=== PATIENT | female | born 1990 | race Caucasian/White ===

== ENCOUNTER 2016-12-14 17:32 | Emergency (ER) | payer SELFPAY ==
[2016-12-14 18:40] LABS: CONTROL LINE UCG INT CTR LINE PRESENT
--- NOTE | 2016-12-14 19:20 | EDDOCDS ---
Physician Documentation [facility] Name: Sara Flanagan Age: 26 yrs Sex: Female : 1990 Arrival Date: 12/14/2016 Time: 17:32 Bed PR Private MD: Juliocesar Naranjo M.D. Disposition: 12/14/16 18:56 Discharged to Home/Self Care. Impression: Urinary tract infection, site not specified. - Condition is Stable. - Discharge Instructions: Urinary Tract Infection, Urinary Tract Infection, Qign-kg-Ybxa. - Prescriptions for Macrobid 100 mg Oral Capsule - take 100 milligram by ORAL route every 12 hours for 10 days; 20 capsule. - Medication Reconciliation, Local Pharmacy Hours form. - Follow up: Juliocesar Naranjo; When: Call to arrange an appointment. - Problem is new. - Symptoms are unchanged. Historical: - Allergies: no known allergies; - Home Meds: 1. none - PMHx: Heart Murmur; - PSHx: 3 open heart surgeries as ; eye surgery; - Social history: Smoking status: Patient states was never smoker of tobacco. No barriers to communication noted, The patient speaks fluent Mongolian. - Family history: Not pertinent. - : The pt / caregiver states he / she is not on anticoagulants. Home medication list is obtained from the patient. - Exposure Risk Screening:: None identified. 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 6 in. (137.16 cm) (R); 17:34 Body Mass Index 16.64 (31.30 kg, 137.16 cm) dd6 MDM: 17:57 UA Ordered. EDMS 17:57 UCG- In Lab Ordered. EDMS 17:57 Urine Culture Ordered. EDMS 18:49 UCG- In Lab Reviewed. sd1 18:49 UA Reviewed. sd1 18:49 UCG- In Lab Reviewed. sd1 18:55 GC & Chlamydia Amplification Ordered. EDMS 19:05 Financial registration complete. gb 19:18 [facility] Payment Agreement was scanned into [employer] and attached to record. gb Signatures: Dispatcher MedHost Jayna Diaz MD MD sd1 Flores Russ RN RN Anne Ty RN RN Sujata Cortez, John Reg gb The chart was reviewed and I authenticate all verbal orders and agree with the evaluation and treatment provided.Attachments: 19:18 [facility] Payment Agreement gb MTDD
--- NOTE | 2016-12-14 19:20 | EDDOCDS ---
Nurse's Notes [facility] Name: Sara Flanagan Age: 26 yrs Sex: Female : 1990 Arrival Date: 12/14/2016 Time: 17:32 Bed PR Private MD: Juliocesar Naranjo M.D. Diagnosis: Urinary tract infection, site not specified Presentation: 12/14 17:51 Presenting complaint: Patient states: Hurts after urinating in am--has had this for mcp last few days, perineal itching, has urgency, frequency. Adult Sepsis Screening: The patient does not have new or worsening altered mentation. Patient's respiratory rate is less than 22. Systolic blood pressure is greater than 100. Patient has a qSOFA score of 0- Negative Sepsis Screen. Suicide/Homicide risk assessment- the patient denies having any suicidal and/or homicidal ideations and does not present with any other emotional, behavioral or mental health complaints. Status: Patient is not a health services administrator or dependent. Transition of care: patient was not received from another setting of care. 17:51 Acuity: JUMANA Level 4 [facility] 17:51 Method Of Arrival: Walkin/Carried/Asstd [facility] Triage Assessment: 17:53 General: Appears in no apparent distress. Pain: Location: suprapubic area Pain [facility] currently is 7 out of 10 on a pain scale. HIV screening NA for this visit Offered previously. Neurological: No deficits noted. Respiratory: Airway is patent Respiratory effort is even, unlabored. : Reports pain after voiding urgency urinary frequency. Derm: Skin is pink, warm & dry. 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 none - PMHx: Heart Murmur; - PSHx: 3 open heart surgeries as ; eye surgery; - Social history: Smoking status: Patient states was never smoker of tobacco. No barriers to communication noted, The patient speaks fluent Telugu. - Family history: Not pertinent. - : The pt / caregiver states he / she is not on anticoagulants. Home medication list is obtained from the patient. - Exposure Risk Screening:: None identified. Screenin:15 Screening information is obtained from the patient. Fall risk: No risks identified. srm Assistance ADL's: requires no assistance with activities of daily living. Abuse/DV Screen: The patient / caregiver reports he/she is: not in a situation that causes fear, pain or injury. Nutritional screening: No deficits noted. Advance Directives: There is no active DNR order. home support is adequate. Assessment: 19:15 General: Appears in no apparent distress, Behavior is appropriate for age, cooperative. srm Neurological: No deficits noted. EENT: No deficits noted. Respiratory: No deficits noted. GI: No deficits noted. : Reports burning with urination. Vital Signs: 17:34 BP 149 / 77; Pulse 89; Resp 18 S; Temp 96.7(O); Pulse Ox 98% on R/A; Weight 31.3 kg dd6 (R); Height 4 ft. 6 in. (137.16 cm) (R); 17:34 Body Mass Index 16.64 (31.30 kg, 137.16 cm) dd6 Vitals: 17:34 Log In Time: December 14, 2016 at 17:32. dd6 ED Course: 17:34 Patient visited by Franky Laws PCA. dd6 17:34 Juliocesar Naranjo is Private Physician. dd6 17:34 Patient moved to Waiting dd6 17:35 Patient moved to Pre RCE dd6 17:52 Triage Initiated mcp 17:54 Patient visited by Anne Randle RN. mcp 18:28 UCG- In Lab Sent. kr3 18:28 Urine Culture Sent. kr3 18:28 UA Sent. kr3 18:50 Jayna Jose MD is Attending Physician. sd1 18:50 Patient visited by Jayna Jose MD. sd1 18:50 Patient moved to PR kr3 18:55 Juliocesar Naranjo is Referral Physician. sd1 19:14 Patient name changed from Sara\S\G\S\Flanagan\S\ to Sara\S\Damaris\S\Flanagan. EDMS 19:15 The patient / caregiver is instructed regarding the plan of care and ED course. srm Accompanied by Significant Other, Patient has correct armband on for positive identification. 19:15 No IV's were initiated during this patient's visit. No procedures done that require srm assistance. 19:18 [facility] Payment Agreement was scanned into [employer] and attached to record. gb Order Results: Lab Order: UA; SPEC'M 12/14/16 18:26 Test: APPEARANCE, URINE; Value: CLEAR; Range: CLEAR; Status: F Test: COLOR, URINE; Value: YELLOW; Range: YELLOW; Status: F Test: PH,URINE; Value: 6.0; Range: 5.0-9.0; Units: UNITS; Status: F Test: SPECIFIC GRAVITY URINE AUTO; Value: 1.020; Range: 1.002-1.035; Status: F Test: PROTEIN, URINE AUTO; Value: 1+; Range: NEGATIVE; Abnormal: Above high normal; Units: mg/dL; Status: F Test: GLUCOSE, URINE (UA) AUTO; Value: NEGATIVE; Range: NEGATIVE; Units: mg/dL; Status: F Test: KETONE, URINE AUTO; Value: NEGATIVE; Range: NEGATIVE; Units: mg/dL; Status: F Test: UROBILINOGEN, URINE AUTO; Value: 4.0; Range: 0.0-2.0; Abnormal: Above high normal; Units: mg/dL; Status: F Test: BILIRUBIN, URINE AUTO; Value: NEGATIVE; Range: NEGATIVE; Status: F Test: NITRITE, URINE AUTO; Value: POSITIVE; Range: NEGATIVE; Status: F Test: LEUKOCYTE ESTERASE, URINE AUTO; Value: 2+; Range: NEGATIVE; Abnormal: Above high normal; Status: F Test: BLOOD, URINE BLOOD; Value: 1+; Range: NEGATIVE; Abnormal: Above high normal; Status: F Test: SPERM, URINE AUTO; Range: NONE; Status: I Test: WBC, URINE AUTO; Value: 84; Range: 0-3; Abnormal: Above high normal; Units: /HPF; Status: F Test: RBC, URINE AUTO; Value: 5; Range: 0-3; Abnormal: Above high normal; Units: /HPF; Status: F Test: BACTERIA, URINE AUTO; Value: 2+; Range: NEGATIVE; Abnormal: Above high normal; Status: F Test: SQUAMOUS EPITHELIAL CELL UR AU; Value: 0; Range: 0-6; Units: /HPF; Status: F Test: MUCUS, URINE; Value: SMALL; Range: NEGATIVE; Status: F Test: HYALINE CAST, URINE AUTO; Value: 0; Range: 0-1; Units: /LPF; Status: F Lab Order: [facility]- In Lab; SPEC'M 12/14/16 18:26 Test: URINE PREG TEST; Value: NEGATIVE; Range: NEGATIVE; Status: F Outcome: 18:56 Discharge ordered by Provider. sd1 19:15 Discharge Assessment: Patient awake, alert and oriented x 3. No cognitive and/or srm functional deficits noted. Patient verbalized understanding of disposition instructions. patient administered narcotics - no. The following High Risk Discharge criteria are identified: None. Discharged to home ambulatory, with significant other. Condition: good Condition: stable. Discharge instructions given to patient, Instructed on discharge instructions, follow up and referral plans. medication usage, Demonstrated understanding of instructions, medications, Pt was receptive of discharge instructions/ teaching. Prescriptions given X 1. No special radiology studies were completed. Property sent home with patient. 19:18 Patient left the ED. srm Signatures: Dispatcher MedHost EDMS Jayna Jose MD MD sd1 Flores Russ RN RN Anne Ty RN Sujata Barnett mcp, Reg Reg gb Robie, Kathleen, RN RN kr3 Franky Laws, BAKER CHEF BAKER CHEF dd6 YUN
--- NOTE | 2016-12-16 20:19 | EDDOCDS ---
Physician Documentation [facility] Name: Sara Flanagan Age: 26 yrs Sex: Female : 1990 Arrival Date: 12/14/2016 Time: 17:32 Bed PR Private MD: Juliocesar Naranjo M.D. Disposition: 12/14/16 18:56 Discharged to Home/Self Care. Impression: Urinary tract infection, site not specified. - Condition is Stable. - Discharge Instructions: Urinary Tract Infection, Urinary Tract Infection, Frbm-[id number]. - Prescriptions for Macrobid 100 mg Oral Capsule - take 100 milligram by ORAL route every 12 hours for 10 days; 20 capsule. - Medication Reconciliation, Local Pharmacy Hours form. - Follow up: Juliocesar Naranjo; When: Call to arrange an appointment. - Problem is new. - Symptoms are unchanged. Historical: - Allergies: no known allergies; - Home Meds: 1. none - PMHx: Heart Murmur; - PSHx: 3 open heart surgeries as ; eye surgery; - Social history: Smoking status: Patient states was never smoker of tobacco. No barriers to communication noted, The patient speaks fluent [place]er. - Family history: Not pertinent. - : The pt / caregiver states he / she is not on anticoagulants. Home medication list is obtained from the patient. - Exposure Risk Screening:: None identified. 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 6 in. (137.16 cm) (R); 17:34 Body Mass Index 16.64 (31.30 kg, 137.16 cm) dd6 MDM: 17:57 UA Ordered. EDMS 17:57 UCG- In Lab Ordered. EDMS 17:57 Urine Culture Ordered. EDMS 18:49 UCG- In Lab Reviewed. sd1 18:49 UA Reviewed. sd1 18:49 UCG- In Lab Reviewed. sd1 18:55 GC & Chlamydia Amplification Ordered. EDMS 19:05 Financial registration complete. gb 19:18 [facility] Payment Agreement was scanned into [employer] and attached to record. gb 12/15 11:04 T-Sheet-- Draft Copy was scanned into MEDHOST and attached to record. gb 12/16 12:08 Lab / Xray Callback was scanned into [email or web address] and attached to record. deg Signatures: Dispatcher MedHost EDJayna Acevedo MD MD sd1 Yuliana Craven, Assistant Store Manager Operations Unit deg Flores Russ RN RN srm Anne Randle RN RN mcp Sujata Clemons, Reg Reg gb The chart was reviewed and I authenticate all verbal orders and agree with the evaluation and treatment provided.Attachments: 12/14 19:18 [facility] Payment Agreement gb 12/15 11:04 T-Sheet-- Draft Copy gb Chart Complete MTDD
--- NOTE | 2016-12-16 20:19 | EDDOCDS ---
Physician Documentation [facility] Name: Sara Flanagan Age: 26 yrs Sex: Female : 1990 Arrival Date: 12/14/2016 Time: 17:32 Bed PR Private MD: Juliocesar Naranjo M.D. Disposition: 12/14/16 18:56 Discharged to Home/Self Care. Impression: Urinary tract infection, site not specified. - Condition is Stable. - Discharge Instructions: Urinary Tract Infection, Urinary Tract Infection, Czcl-wu-Ahpt. - Prescriptions for Macrobid 100 mg Oral Capsule - take 100 milligram by ORAL route every 12 hours for 10 days; 20 capsule. - Medication Reconciliation, Local Pharmacy Hours form. - Follow up: Juliocesar Naranjo; When: Call to arrange an appointment. - Problem is new. - Symptoms are unchanged. Historical: - Allergies: no known allergies; - Home Meds: 1. none - PMHx: Heart Murmur; - PSHx: 3 open heart surgeries as ; eye surgery; - Social history: Smoking status: Patient states was never smoker of tobacco. No barriers to communication noted, The patient speaks fluent Thai. - Family history: Not pertinent. - : The pt / caregiver states he / she is not on anticoagulants. Home medication list is obtained from the patient. - Exposure Risk Screening:: None identified. 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 6 in. (137.16 cm) (R); 17:34 Body Mass Index 16.64 (31.30 kg, 137.16 cm) dd6 MDM: 17:57 UA Ordered. EDMS 17:57 UCG- In Lab Ordered. EDMS 17:57 Urine Culture Ordered. EDMS 18:49 UCG- In Lab Reviewed. sd1 18:49 UA Reviewed. sd1 18:49 UCG- In Lab Reviewed. sd1 18:55 GC & Chlamydia Amplification Ordered. EDMS 19:05 Financial registration complete. gb 19:18 [facility] Payment Agreement was scanned into [email or web address] and attached to record. gb 12/15 11:04 T-Sheet-- Draft Copy was scanned into MEDHOST and attached to record. gb 12/16 12:08 Lab / Xray Callback was scanned into [email or web address] and attached to record. deg Signatures: Dispatcher MedHost EDJayna Acevedo MD MD sd1 Yuliana Craven, Dietary Aide Cook Unit deg Flores Russ RN RN srm Anne Randle RN RN mcp Sujata Clemons, Reg Reg gb The chart was reviewed and I authenticate all verbal orders and agree with the evaluation and treatment provided.Attachments: 12/14 19:18 [facility] Payment Agreement gb 12/15 11:04 T-Sheet-- Draft Copy gb Chart Complete MTDD
--- NOTE | 2016-12-16 20:20 | EDDOCDS ---
Nurse's Notes [facility] Name: Sara Flanagan Age: 26 yrs Sex: Female : 1990 Arrival Date: 12/14/2016 Time: 17:32 Bed PR Private MD: Juliocesar Naranjo M.D. Diagnosis: Urinary tract infection, site not specified Presentation: 12/14 17:51 Presenting complaint: Patient states: Hurts after urinating in am--has had this for mcp last few days, perineal itching, has urgency, frequency. Adult Sepsis Screening: The patient does not have new or worsening altered mentation. Patient's respiratory rate is less than 22. Systolic blood pressure is greater than 100. Patient has a qSOFA score of 0- Negative Sepsis Screen. Suicide/Homicide risk assessment- the patient denies having any suicidal and/or homicidal ideations and does not present with any other emotional, behavioral or mental health complaints. Status: Patient is not a customer service trainer or dependent. Transition of care: patient was not received from another setting of care. 17:51 Acuity: JUMANA Level 4 [facility] 17:51 Method Of Arrival: Walkin/Carried/Asstd [facility] Triage Assessment: 17:53 General: Appears in no apparent distress. Pain: Location: suprapubic area Pain [facility] currently is 7 out of 10 on a pain scale. HIV screening NA for this visit Offered previously. Neurological: No deficits noted. Respiratory: Airway is patent Respiratory effort is even, unlabored. : Reports pain after voiding urgency urinary frequency. Derm: Skin is pink, warm & dry. 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 none - PMHx: Heart Murmur; - PSHx: 3 open heart surgeries as ; eye surgery; - Social history: Smoking status: Patient states was never smoker of tobacco. No barriers to communication noted, The patient speaks fluent Greek. - Family history: Not pertinent. - : The pt / caregiver states he / she is not on anticoagulants. Home medication list is obtained from the patient. - Exposure Risk Screening:: None identified. Screenin:15 Screening information is obtained from the patient. Fall risk: No risks identified. srm Assistance ADL's: requires no assistance with activities of daily living. Abuse/DV Screen: The patient / caregiver reports he/she is: not in a situation that causes fear, pain or injury. Nutritional screening: No deficits noted. Advance Directives: There is no active DNR order. home support is adequate. Assessment: 19:15 General: Appears in no apparent distress, Behavior is appropriate for age, cooperative. srm Neurological: No deficits noted. EENT: No deficits noted. Respiratory: No deficits noted. GI: No deficits noted. : Reports burning with urination. 12/16 11:55 General: Urine culture results reviewed by Dr Martin. Pt contacted and prescription mcp for Keflex 500mg po QID x7 days called into [facility] per pts request. Vital Signs: 12/14 17:34 BP 149 / 77; Pulse 89; Resp 18 S; Temp 96.7(O); Pulse Ox 98% on R/A; Weight 31.3 kg dd6 (R); Height 4 ft. 6 in. (137.16 cm) (R); 17:34 Body Mass Index 16.64 (31.30 kg, 137.16 cm) dd6 Vitals: 17:34 Log In Time: December 14, 2016 at 17:32. dd6 ED Course: 17:34 Patient visited by Franky Laws PCA. dd6 17:34 Juliocesar Naranjo is Private Physician. dd6 17:34 Patient moved to Waiting dd6 17:35 Patient moved to Pre RCE dd6 17:52 Triage Initiated mcp 17:54 Patient visited by Anne Randle RN. [facility] 18:28 UCG- In Lab Sent. kr3 18:28 Urine Culture Sent. kr3 18:28 UA Sent. kr3 18:50 Jayna Jose MD is Attending Physician. sd1 18:50 Patient visited by Jayna Jose MD. sd1 18:50 Patient moved to kr3 18:55 Juliocesar Naranjo is Referral Physician. sd1 19:14 Patient name changed from Sara\S\G\S\Flanagan\S\ to Sara\S\Damaris\S\Flanagan. EDMS 19:15 The patient / caregiver is instructed regarding the plan of care and ED course. srm Accompanied by Significant Other, Patient has correct armband on for positive identification. 19:15 No IV's were initiated during this patient's visit. No procedures done that require srm assistance. 19:18 [facility] Payment Agreement was scanned into [employer] and attached to record. 12/15 11:04 T-Sheet-- Draft Copy was scanned into [employer] and attached to record. 12/16 12:08 Lab / Xray Callback was scanned into [employer] and attached to record. deg Order Results: Lab Order: UA; SPEC'M 12/14/16 18:26 Test: APPEARANCE, URINE; Value: CLEAR; Range: CLEAR; Status: F Test: COLOR, URINE; Value: YELLOW; Range: YELLOW; Status: F Test: PH,URINE; Value: 6.0; Range: 5.0-9.0; Units: UNITS; Status: F Test: SPECIFIC GRAVITY URINE AUTO; Value: 1.020; Range: 1.002-1.035; Status: F Test: PROTEIN, URINE AUTO; Value: 1+; Range: NEGATIVE; Abnormal: Above high normal; Units: mg/dL; Status: F Test: GLUCOSE, URINE (UA) AUTO; Value: NEGATIVE; Range: NEGATIVE; Units: mg/dL; Status: F Test: KETONE, URINE AUTO; Value: NEGATIVE; Range: NEGATIVE; Units: mg/dL; Status: F Test: UROBILINOGEN, URINE AUTO; Value: 4.0; Range: 0.0-2.0; Abnormal: Above high normal; Units: mg/dL; Status: F Test: BILIRUBIN, URINE AUTO; Value: NEGATIVE; Range: NEGATIVE; Status: F Test: NITRITE, URINE AUTO; Value: POSITIVE; Range: NEGATIVE; Status: F Test: LEUKOCYTE ESTERASE, URINE AUTO; Value: 2+; Range: NEGATIVE; Abnormal: Above high normal; Status: F Test: BLOOD, URINE BLOOD; Value: 1+; Range: NEGATIVE; Abnormal: Above high normal; Status: F Test: SPERM, URINE AUTO; Range: NONE; Status: I Test: WBC, URINE AUTO; Value: 84; Range: 0-3; Abnormal: Above high normal; Units: /HPF; Status: F Test: RBC, URINE AUTO; Value: 5; Range: 0-3; Abnormal: Above high normal; Units: /HPF; Status: F Test: BACTERIA, URINE AUTO; Value: 2+; Range: NEGATIVE; Abnormal: Above high normal; Status: F Test: SQUAMOUS EPITHELIAL CELL UR AU; Value: 0; Range: 0-6; Units: /HPF; Status: F Test: MUCUS, URINE; Value: SMALL; Range: NEGATIVE; Status: F Test: HYALINE CAST, URINE AUTO; Value: 0; Range: 0-1; Units: /LPF; Status: F Lab Order: Urine Culture; SPEC'M 12/14/16 18:26 Test: URINE CULTURE; Value: <EXTERNAL COMMENT eCWMed> FULL REPORT IN LAB NOTES (eCW and Medent).; Status: F Test: URINE CULTURE; Value: ORGANISM 1: KLEBSIELLA PNEUMONIAE; Status: F Test: URINE CULTURE; Value: KLEBSIELLA PNEUMONIAE; Status: F Test: URINE CULTURE; Value: COLONY COUNT CFU/ml >100,000; Status: F Test: URINE CULTURE; Value: GRAM NEG SENSI - VITEK 80; Status: F Test: URINE CULTURE; Value: Method: VIT2; Status: F Test: URINE CULTURE; Value: EXTD BRD SPCTRM BETA LACTAMASE -; Status: F Test: URINE CULTURE; Value: TRIMETHOPRIM/SULFAMETHOXAZOLE <=20 S; Status: F Test: URINE CULTURE; Value: AMPICILLIN >=32 R; Status: F Test: URINE CULTURE; Value: GENTAMICIN <=1 S; Status: F Test: URINE CULTURE; Value: NITROFURANTOIN 128 R; Status: F Test: URINE CULTURE; Value: CEFAZOLIN <=4 S; Status: F Test: URINE CULTURE; Value: LEVOFLOXACIN <=0.12 S; Status: F Test: URINE CULTURE; Value: TOBRAMYCIN <=1 S; Status: F Test: URINE CULTURE; Value: CEFTRIAXONE <=1 S; Status: F Test: URINE CULTURE; Value: CEFTAZIDIME <=1 S; Status: F Test: URINE CULTURE; Value: AMPICILLIN/SULBACTAM 4 S; Status: F Test: URINE CULTURE; Value: PIPERACILLIN/TAZOBACTAM <=4 S; Status: F Test: URINE CULTURE; Value: AZTREONAM <=1 S; Status: F Test: URINE CULTURE; Value: ERTAPENEM <=0.5 S; Status: F Test: URINE CULTURE; Value: MEROPENEM <=0.25 S; Status: F Test: URINE CULTURE; Value: TIGECYCLINE <=0.5 S; Status: F Test: URINE CULTURE; Value: CEFEPIME <=1 S; Status: F Lab Order: UCG- In Lab; SPEC'M 12/14/16 18:26 Test: URINE PREG TEST; Value: NEGATIVE; Range: NEGATIVE; Status: F Lab Order: GC & Chlamydia Amplification; SPEC'M 12/14/16 18:26 Test: CHLAMYDIA DNA AMPLIFICATION; Value: NEGATIVE; Range: NEGATIVE; Status: F Test: GC DNA AMPLIFICATION; Value: NEGATIVE; Range: NEGATIVE; Status: F Outcome: 12/14 18:56 Discharge ordered by Provider. sd1 19:15 Discharge Assessment: Patient awake, alert and oriented x 3. No cognitive and/or srm functional deficits noted. Patient verbalized understanding of disposition instructions. patient administered narcotics - no. The following High Risk Discharge criteria are identified: None. Discharged to home ambulatory, with significant other. Condition: good Condition: stable. Discharge instructions given to patient, Instructed on discharge instructions, follow up and referral plans. medication usage, Demonstrated understanding of instructions, medications, Pt was receptive of discharge instructions/ teaching. Prescriptions given X 1. No special radiology studies were completed. Property sent home with patient. 19:18 Patient left the ED. srm Signatures: Dispatcher MedHost EDMS Jayna Jose MD MD sd1 Yuliana Craven, Loan Manager Unit deg Flores Russ RN Anne Madrigal RN Sujata Barnett mcp, Dalia Davidson RN RN kr3 Franky Laws, APPLICATION DEVELOPMENT TEAM LEAD APPLICATION DEVELOPMENT TEAM LEAD dd6 Chart Complete MTDD
== END 2016-12-14 19:18 | disposition home or self-care (01) ==
LOC: M ED 17:32
DX: N39.0 Urinary tract infection, site not specified (principal); R01.1 Cardiac murmur, unspecified

== ENCOUNTER 2022-06-25 18:13 | Emergency (ER) | payer SELFPAY ==
[~2022-06-25] VITALS: Ht 137.2 cm; Wt 34.1 kg
[2022-06-25 20:47] VITALS: BP 161/84
== END 2022-06-25 20:54 | disposition home or self-care (01) ==
LOC: M ED 18:13
DX: S66.516A Strain of intrinsic muscle, fascia and tendon of right little finger at wrist and hand level, initial encounter (principal); X58.XXXA Exposure to other specified factors, initial encounter; Y99.0 Civilian activity done for income or pay